=== PATIENT | male | born 1980 | race Caucasian/White ===

== ENCOUNTER 2021-09-14 18:37 | Emergency (ER) | payer SELFPAY ==
--- NOTE | 2021-09-14 19:20 | NUR ---
Per business mail entry clerk, pt [employer].
== END 2021-09-14 19:20 | disposition left against medical advice (07) ==
LOC: SED 18:37
DX: R06.02 Shortness of breath (principal); Z53.21 Procedure and treatment not carried out due to patient leaving prior to being seen by health care provider